=== PATIENT | female | born 1990 | race Hispanic/Latino ===

== ENCOUNTER 2018-06-22 12:39 | Emergency (ER) | payer SELFPAY ==
[~2018-06-22] VITALS: Ht 160 cm; Wt 61.7 kg
[2018-06-22] MEDS ORDERED: TRAMADOL HCL 50 MG TAB PO ONE (13:00)
[2018-06-22 13:09] LABS: BILIRUBIN,URINE NEGATIVE (NEGATIVE); CLARITY,URINE CLEAR (CLEAR); COLOR,URINE YELLOW (YELLOW); KETONES,URINE TRACE (NEGATIVE); LEUKOCYTE ESTERASE ,URINE NEGATIVE (NEGATIVE); NITRITE,URINE NEGATIVE (NEGATIVE); PREGNANCY TEST, URINE NEGATIVE (NEGATIVE); PROTEIN,URINE DIPSTICK TRACE (NEGATIVE); URINE UROBILINOGEN 0.2 mg/dL (0.2 - 1)
[2018-06-22 13:19] LABS: BACTERIA,URINE FEW /HPF; EPITHELIAL CELLS,URINE MODERATE /LPF; RBC,URINE 0-5 /HPF (0-5); WBC,URINE (MAN) 0-5 /HPF (0-5)
== END 2018-06-22 13:35 | disposition left against medical advice (07) ==
LOC: ER 12:39
DX: R10.31 Right lower quadrant pain (principal)
CPT/HCPCS: 81001; 81025; 99282